=== PATIENT | female | born 1950 | race Caucasian/White ===

== ENCOUNTER → 2019-07-17 14:30 | Outpatient (CLI) | payer MEDICARE, BC, SELFPAY ==
--- NOTE | 2019-07-17 14:39 | RAD_ITS ---
STUDY: X-RAY CHEST REASON FOR EXAM: Female, 69 years old. Breast cancer TECHNIQUE: PA and lateral chest COMPARISON: CT chest 03/29/2016. FINDINGS: There is a new and/or enlargement of a large mass and atelectasis within the right upper lobe measuring 7.5 x 7 cm. There is new elevation of the right hilum indicating atelectasis.. There is also new and/or enlargement of left hilar mass and/or adenopathy measuring 7.2 x 7 cm. Some other more peripheral pulmonary nodules present on the prior CT are not present on the exam. Normal size heart. Normal visualized pulmonary arteries. Normal visualized aortic arch and descending thoracic aorta. Normal visualized thoracic spine. Normal visualized ribs, clavicles, and shoulders. There is no demonstrated abnormality of the visualized soft tissue structures of the upper abdomen. RAD/Chest PA and Lateral IMPRESSION: new and/or enlargement of a large mass and atelectasis within the right upper lobe measuring 7.5 x 7 cm. There is new elevation of the right hilum indicating atelectasis.. There is also new and/or enlargement of left hilar mass and/or adenopathy measuring 7.2 x 7 cm. Some other more peripheral pulmonary nodules present on the prior CT are not present on the exam Electronically Signed: Tushar Sneed, at 0:08 EDT Tel , Service support ,
[2019-07-17 18:35] LABS: ALB/GLOB Ratio 0.7 RATIO (0.9-2.4); AST(SGOT) 40 U/L (15-37); Alanine Aminotransfer ALT/SGPT 20 U/L (13-56); Albumin, Serum 3.4 g/dL (3.2-5.0); Alkaline Phosphatase 85 U/L (45-117); Anion Gap 8 (5-15); BUN 9 mg/dL (7-18); BUN/Creat Ratio 11.1 RATIO (10-20); Calcium,Total 8.9 mg/dL (8.5-10.1); Chloride 107 mmol/L (98-107); Creatinine, Serum 0.81 mg/dL (0.55-1.02); EST Glomerular Filtration Rate 74 mL/min (>60); Est Glom Filt Rate - Afr Amer 89 mL/min (>60); Globulin 4.9 g/dL (2.2-4.2); Glucose 78 mg/dL (74-106); Potassium 3.6 mmol/L (3.5-5.1); Protein, Total 8.3 g/dL (6.4-8.2); Sodium Level 141 mmol/L (136-145)
[2019-07-18 10:15] LABS: Absolute Lymphocyte Count 1.28 X10^3/uL (0.83-4.51); Absolute Neutrophil Count 4.4 X10^3/uL (2.0-7.7); Basophil# 0.02 X10^3/uL; Basophil% 0.3 % (0-1); Eosinophil# 0.14 X10^3/uL; Eosinophils% 2.2 % (0-5); Hematocrit 40.4 % (37-47); Lymphocyte # 1.28 X10^3/ul (4.0); Lymphocyte % 20.5 % (19-41); Mean Corp Hgb Conc 29.7 g/dL (32-36); Mean Corpuscular Hgb 28.2 pg (27.0-32.0); Mean Corpuscular Volume 94.8 fL (81-99); Mean Platelet Vol. 10.5 fl (6.2-12.0); Monocyte# 0.35 X10^3/uL; Monocyte% 5.6 % (0-10); NRBC Flagged by Analyzer 0 % (0-5); Neutrophil # 4.42 X10^3/uL (2.7-7.7); Neutrophil % 71.1 % (47-70); Platelet Count 330 K/mm3 (150-450); RBC Distribution Width CV 12.5 % (11.6-14.6); RBC Distribution Width SD 42.9 fl (35.1-43.9); Red Blood Count 4.26 M/mm3 (4.2-5.4); White Blood Count 6.2 K/mm3 (4.4-11.0)
== END ==
PROVIDERS: Family Provider Family Medicine; PCP Family Medicine; Referring Provider Family Medicine; Visit Provider Family Medicine
DX: C50.919 Malignant neoplasm of unspecified site of unspecified female breast (principal)
CPT/HCPCS: 36415; 71046; 80053; 84443; 85025

== ENCOUNTER → 2020-05-14 16:36 | Outpatient (CLI) | payer MEDICARE, BC, SELFPAY ==
[2020-05-14 18:07] LABS: Insulin 2.2 mU/L (2.6-37.6)
== END ==
PROVIDERS: PCP Family Medicine; Visit Provider Family Medicine
DX: R63.4 Abnormal weight loss (principal)
CPT/HCPCS: 36415; 83525

== ENCOUNTER 2020-06-24 17:10 | Emergency (ER) | payer MEDICARE, BC, SELFPAY ==
[2020-06-24 17:12] VITALS: BP 180/112; PULSE 96; RESP 16; TEMP 36.3; O2SAT 80; BMI 15.7
--- NOTE | 2020-06-24 17:35 | EKG12_ITS ---
Test Reason : SOB Blood Pressure : / mmHG Vent. Rate : 089 BPM Atrial Rate : 089 BPM P-R Int : 124 ms QRS Dur : 076 ms QT Int : 382 ms P-R-T Axes : 054 -01 076 degrees QTc Int : 464 ms Normal sinus rhythm Possible Left atrial enlargement Left ventricular hypertrophy Nonspecific ST and T wave abnormality Abnormal ECG Confirmed by KURTIS GUZMÁN ([id number]), video effects editor COURT CASTILLO ([id number]) on 06/30/2020 9:50:54 AM Referred By: ASHLEY Confirmed By:KURTIS GUZMÁN
--- NOTE | 2020-06-24 17:36 | CT_ITS ---
STUDY: CTA CHEST REASON FOR EXAM: Female, 70 years old. Increased SOB and chest tightness, sent by oncology. Hx breast and lung cancer. RADIATION DOSAGE (If Supplied By Facility): CTDIvol = ( 4.63 ) mGy, DLP = ( 107.31 ) mGycm TECHNIQUE: The examination was performed with the intravenous administration of 75mL Isovue 370. Post-processing of the angiographic images was performed, with multiplanar reformation and 3D reconstruction. Individualized dose optimization techniques were used for this CT. COMPARISON: March 29, 2016. FINDINGS: Normal enhancement of the main pulmonary artery and right and left pulmonary arteries. Normal enhancement of the bilateral peripheral pulmonary arteries. There is no demonstrated pulmonary embolism. Normal thoracic aorta and visualized great vessels. There is no demonstrated aortic dissection. Normal heart and pericardium. Normal mediastinum. Normal hilar regions. Normal visualized trachea and bronchi. The lungs are well expanded. There is right upper lobe airspace consolidation and 2.5 cm mass density. There is 2.7 x 1.7 cm left lower lung mass consolidation. There is 1.6 cm left perihilar mass consolidation. There are 1.5 and 1.6 cm regions of mass consolidation at the left upper lung. There is 0.7 cm nodule at the right lung base. There are cystic regions. There is left lower lung atelectasis. Normal pleura. There is left mastectomy with breast implant. Normal osseous structures. Normal visualized upper abdomen. CT/CTA Chest W/WO Contrast IMPRESSION: CTA chest examination, without a demonstrated pulmonary embolism or arterial dissection. Bilateral masses and regions of consolidation. Correlation with PET scan or or recent scan recommended for further evaluation. Electronically Signed: Melquiades Wang MD at 19:46 EDT , Service support ,
--- NOTE | 2020-06-24 17:39 | NURSING ---
NO OLD EKGS
[2020-06-24 17:53] VITALS: BP 199/103; PULSE 85; RESP 16; TEMP 36.8; O2SAT 98
[2020-06-24 18:07] LABS: Absolute Lymphocyte Count 0.66 X10^3/uL (0.83-4.51); Absolute Neutrophil Count 7.6 X10^3/uL (2.0-7.7); Eosinophil# 0.01 X10^3/uL; Eosinophils% 0.1 % (0-5); Hematocrit 41.3 % (37-47); Hemoglobin 13.2 g/dL (12.0-15.0); Lymphocyte # 0.66 X10^3/ul (4.0); Lymphocyte % 7.8 % (19-41); Mean Corpuscular Hgb 29.4 pg (27.0-32.0); Mean Platelet Vol. 10.8 fl (6.2-12.0); Monocyte# 0.22 X10^3/uL; Monocyte% 2.6 % (0-10); NRBC Flagged by Analyzer 0 % (0-5); Neutrophil # 7.57 X10^3/uL (2.7-7.7); Neutrophil % 88.9 % (47-70); POSITIVE MORPHOLOGY YES; Platelet Count 284 K/mm3 (150-450); RBC Distribution Width CV 13.8 % (11.6-14.6); RBC Distribution Width SD 45.8 fl (35.1-43.9); Red Blood Count 4.49 M/mm3 (4.2-5.4); White Blood Count 8.5 K/mm3 (4.4-11.0)
[2020-06-24 18:11] LABS: Differential Indicated SCAN CRITERIA MET
--- NOTE | 2020-06-24 18:25 | ED.VISSUMM ---
- ER Visit Summary Date of Service: 06/24/20 Chief Complaint: Shortness of breath History of Present Illness: The patient is a [address] Recinos and Dr. Archibald at the [facility]. 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 She reports that she is taking a targeted chemo that causes toxicity to her lungs. Her last dose was 13 days ago. Patient reports that she has longstanding shortness of breath that is gradually worsened. Is severe at worst and mild currently. Is worsened by exertion or laying flat. Is relieved by rest. She reports he has a chronic cough that is unchanged. This is nonproductive. She denies any fever or chills. She reports that she has a lower chest tightness bilaterally is 2 out of 10 in severity. Patient does report she had pleural effusions that were drained in November of this year. States that this is not similar to that. Physical Examination: Vitals: Stable. Afebrile. General: Well-nourished and well-developed. Head: Normocephalic atraumatic. Neck: Supple, no lymphadenopathy. No JVD. Nontender. Cardiovascular: Regular rate and rhythm. No murmurs. Respiratory: No respiratory distress. Clear to auscultation bilaterally. Abdominal: Soft, nontender, nondistended, normal bowel sounds. No guarding, rebound, or peritoneal signs. Back: Nontender. Extremities: Nontender, no edema. Skin: Normal color, no rash. Neurologic: Alert and oriented ?3. Cranial nerves II through XII are intact. Normal strength and sensation. Psych: Normal affect. Test Results: EKG is sinus at [address] changes. CBC shows segmented neutrophils of 89 lymphocytes of 8. Chem-7 shows a glucose 119. Troponin is negative. BNP is 44.1. COVID-19 test is pending. Clinical Impression(s) from Imaging Studies Chest CTA 06/24/20 17:36 IMPRESSION: CTA chest examination, without a demonstrated pulmonary embolism or arterial dissection. Bilateral masses and regions of consolidation. Correlation with PET scan or or recent scan recommended for further evaluation. Electronically Signed: Melquiades Wang MD at 19:46 EDT , Service support , Emergency Department Course and Treatment: Patient is resting comfortably. She refused pain medications. I discussed the results of the CTA with the patient. She does not want to be placed on antibiotics. I did discuss with her the risk of a postobstructive pneumonia. She would like to talk with her oncologist first and have him see if the CT is different than her prior exams. She believes that this may be due to toxicity from the chemotherapy. Treatment Plan: Patient be discharged instructions to follow-up with her oncologist as soon as possible. Return to the emergency department for any worsening symptoms. Disposition: To home in improved and stable condition. Impression: 1. Breast cancer with metastases to the lungs. 2. Dyspnea. This note was generated with [employer] dictation software. It may contain incorrect words, spelling, and punctuation that were not noted in review of the chart prior to signing ED Disposition - Plan for ED Patient: Disposition: Home or Assisted Living Instructions: ED Dyspnea Referrals: Malka Recinos MD [Primary Care Provider] - Additional Instructions: Follow-up with your oncologist as soon as possible.
[2020-06-24 18:26] LABS: Anion Gap 4 (5-15); BUN 14 mg/dL (7-18); BUN/Creat Ratio 19.7 RATIO (10-20); Calcium,Total 9.1 mg/dL (8.5-10.1); Chloride 100 mmol/L (98-107); Creatinine, Serum 0.71 mg/dL (0.55-1.02); EST Glomerular Filtration Rate 86 mL/min (>60); Est Glom Filt Rate - Afr Amer 104 mL/min (>60); Estimated Creatinine Clearance 30.22 ml/min; Glucose 119 mg/dL (74-106); Potassium 4.4 mmol/L (3.5-5.1); Sodium Level 135 mmol/L (136-145)
[2020-06-24 18:40] LABS: Differential Comment SCANNED; Platelet Estimate ADEQUATE (ADEQ); Red Cell Morphology NORM C+C NORMAL (NORM C&C)
[2020-06-24 18:44] LABS: BNP,B-Type NATRIURETIC PEPTIDE 44.1 pg/mL (0-100)
[2020-06-24 19:11] VITALS: BP 187/93; PULSE 96; RESP 18; O2SAT 98
== END 2020-06-24 20:11 | disposition home or self-care (01) ==
LOC: ED 18:54
PROVIDERS: Emergency Provider Emergency Medicine; PCP Family Medicine
DX: C50.919 Malignant neoplasm of unspecified site of unspecified female breast (principal); C78.00 Secondary malignant neoplasm of unspecified lung; R06.00 Dyspnea, unspecified; Z79.899 Other long term (current) drug therapy
CPT/HCPCS: 71275; 80048; 83605; 83880; 84484; 85025; 87040; 87635; 93005; 94799; 99285; Q9967; A4216; U0003